=== PATIENT | female | born 1950 | race Caucasian/White ===

== ENCOUNTER 2019-05-24 16:29 | Inpatient (IN) | payer MEDICAID, OTHER ==
[~2019-05-24] VITALS: Ht 160 cm; Wt 81.5 kg
[2019-05-24] MEDS ORDERED: SODIUM CHLORIDE 0.9% 1,000 ML IV ONE (16:42)
--- NOTE | 2019-05-24 16:51 | NUR ---
PATIENT BROUGHT BACK BY [facility]- PER REPORT FROM EMS THE PATIENT HAS BEEN EXPERIENCING SYNCOPAL EPISODES THE PAST THREE DAYS. UPON EVALUATION AT [facility] 12 LEAD EKG SHOWED NO ABNORMALITIES BUT PATIENT DID HAVE INTERMITTENT EPISODES OF BRADYCARDIA INTO THE 30'S. THE PATIENT ARRIVES ALERT, ORIENTED, WARM, PINK, AND DRY. THE PATIENT HAS A LARGE HEMATOMA OVER RIGHT EYE FROM MOST RECENT SYNCOPAL EVENT RESULTING IN A GLF.
[2019-05-24 17:28] LABS: TROPONIN I < 0.015 ng/mL (0.000-0.045)
[2019-05-24] MEDS ORDERED: ASPI-496 PO (17:32)
[2019-05-24] MEDS ORDERED: ATEN25TA PO (17:33)
[2019-05-24] MEDS ORDERED: LISI5TAB7 PO (17:33)
--- NOTE | 2019-05-24 17:42 | NUR ---
ATTEMPTED TO ASSIST PATIENT TO AMBULATE TO BATHROOM, HOWEVER DECIDED TO ASSIST TO BEDSIDE COMMODE DUE TO UNSTEADY GAIT. THE PATIENTS VITAL SIGNS REMAINED STABLE. THE PATIENT WAS ABLE TO ANSWER QUESTIONS AND ORIENTED HOWEVER MADE CONFUSING STATEMENTS- "UNSURE HOW TO USE CALL LIGHT"- WHILE HOLDING IV TUBEING- REORIENTATION PROVIDED. INTERMITTENTLY STOPPED TALKING IN THE MIDDLE OF SENTANCES WHILE MAINTAINING A BLANK GAZE. FSBS 334. Addendum: 05/24/19 at 1751 by [email or web address] ATTEMPTED TO ASSIST PATIENT TO AMBULATE TO BATHROOM, HOWEVER DECIDED TO ASSIST TO BEDSIDE COMMODE DUE TO UNSTEADY GAIT. THE PATIENTS VITAL SIGNS REMAINED STABLE, NEURO REMAINED INTACT, PERRLA, MOVES ALL EXTREMITIES. THE PATIENT WAS ABLE TO ANSWER QUESTIONS AND ORIENTED HOWEVER MADE CONFUSING STATEMENTS- "UNSURE HOW TO USE CALL LIGHT"- WHILE HOLDING IV TUBING- REORIENTATION PROVIDED. INTERMITTENTLY STOPPED TALKING IN THE MIDDLE OF SENTANCES WHILE MAINTAINING A BLANK GAZE. FSBS 334.
--- NOTE | 2019-05-24 17:54 | NUR ---
PRECEPTING RN: DISCUSSED PATIENTS MENTAL STATUS WITH DORY PATTERSON. DORY PATTERSON REVIEWED LABS/IMAGING DONE AT [facility]. NO NEW ORDERS RECEIVED AT THIS TIME.
--- NOTE | 2019-05-24 18:14 | NUR ---
REPORT CALLED TO [facility]- PT TRANSFERRED TO [phone], BELONGINGS SENT WITH PT.
--- NOTE | 2019-05-24 18:35 | NUR ---
ADMITTING DAVID MOSS AT BEDSIDE FOR EVAL.
[2019-05-24] MEDS ORDERED: ACETAMINOPHEN 650 MG/20.3 ML UDC PO PRN (19:30)
[2019-05-24] MEDS ORDERED: DOCUSATE 100 MG CAPSULE PO PRN (19:30)
[2019-05-24 20:00] VITALS: BP 177/90
[2019-05-24 20:43] LABS: HEMOGLOBIN A1C 12.8 % (4.2-6.3)
[2019-05-24 20:54] VITALS: BP 158/83
[2019-05-24] MEDS: ATORVASTATIN 40 MG TABLET PO SCH (21:06)
[2019-05-24] MEDS: ENOXAPARIN 40 MG/0.4 ML SQ SCH (21:06)
[2019-05-24 22:00] VITALS: BP 138/83
[2019-05-24] MEDS ORDERED: OMNIPAQUE 350 MG/ML, 100ML BOTTLE ONE (22:54)
[2019-05-24 23:14] VITALS: BP 138/87
[2019-05-24 23:23] LABS: TROPONIN I < 0.015 ng/mL (0.000-0.045)
[2019-05-25] VITALS (8 sets, daily range): BP systolic 129–160; BP diastolic 68–96
[2019-05-25 01:25] LABS: BASOPHILS # (AUTO) 0.06 x10^3/uL (0-0.1); BASOPHILS % (AUTO) 0 % (0-1); EOSINOPHILS # (AUTO) 0.11 x10^3/uL (0-0.4); EOSINOPHILS % (AUTO) 1 % (1-7); LYMPHOCYTES # (AUTO) 2.56 x10^3/uL (1-3.4); LYMPHOCYTES % (AUTO) 18 % (22-44); MD NO; MEAN CORPUSCULAR HEMOGLOBIN 30.1 pg (27.0-34.8); MEAN CORPUSCULAR VOLUME 91.2 fL (80-100); MEAN PLATELET VOLUME 10.9 fL (7.4-10.4); MONOCYTES # (AUTO) 0.65 x10^3/uL (0.2-0.8); MONOCYTES % (AUTO) 5 % (2-9); NEUTROPHILS # (AUTO) 11.09 x10^3/uL (1.8-6.8); NEUTROPHILS % (AUTO) 77 % (42-75); PLATELET COUNT 278 x10^3/uL (130-400); RED BLOOD COUNT 4.75 x10^6/uL (3.82-5.3); RED CELL DISTRIBUTION WIDTH 13.1 % (9.6-15.2)
[2019-05-25 01:37] LABS: ANION GAP 15 mmol/L (5-15); CALCIUM 8.5 mg/dL (8.5-10.1); CHLORIDE 103 mmol/L (98-107)
[2019-05-25 01:41] LABS: TROPONIN I < 0.015 ng/mL (0.000-0.045)
[2019-05-25 01:51] LABS: CHOLESTEROL, TOTAL 246 mg/dL (140-239); TRIGLYCERIDES 408 mg/dL (50-200)
[2019-05-25 01:53] LABS: CHOL/HDL RATIO 8.8; HDL CHOL % 11 % (28-40); HDL CHOLESTEROL (DIRECT) 28 mg/dL (40-60)
[2019-05-25] MEDS: INSULIN LISPRO 100 UNITS/ML, PEN SQ-INSULIN SCH ×6 (02:05→21:52)
[2019-05-25 05:48] LABS: TROPONIN I < 0.015 ng/mL (0.000-0.045)
[2019-05-25] MEDS: LISINOPRIL 5 MG TABLET PO SCH (09:12)
[2019-05-25] MEDS: ASPIRIN 81 MG TABLET EC PO SCH (09:12)
[2019-05-25] MEDS: ASPIRIN 81 MG TABLET CHEW PO/NG SCH (09:13)
[2019-05-25] MEDS ORDERED: DEXTROSE 50%, 50ML SYRINGE IVPush PRN (10:30)
[2019-05-25] MEDS ORDERED: DEXTROSE 4 GM TAB.CHEW PO PRN (10:30)
[2019-05-25] MEDS ORDERED: GLUCAGON 1 MG IM PRN (10:30)
[2019-05-25] MEDS: CLOPIDOGREL 75 MG TABLET PO SCH (12:34)
[2019-05-25] MEDS ORDERED: INSULIN GLARGINE 100 UNITS/ML, PEN SQ-INSULIN SCH (21:00)
[2019-05-25] MEDS: ENOXAPARIN 40 MG/0.4 ML SQ SCH (21:09)
[2019-05-25] MEDS: SODIUM CHLORIDE FLUSH 10ML SYR IVF SCH (21:10)
[2019-05-25] MEDS: ATORVASTATIN 40 MG TABLET PO SCH (21:10)
[2019-05-26 00:37] VITALS: BP 148/88
[2019-05-26 02:33] VITALS: BP 158/83
[2019-05-26 04:45] VITALS: BP 158/94
[2019-05-26] MEDS: ONDANSETRON 4 MG TABLET PO PRN (05:31)
[2019-05-26 06:42] LABS: BASOPHILS # (AUTO) 0.04 x10^3/uL (0-0.1); BASOPHILS % (AUTO) 0 % (0-1); EOSINOPHILS # (AUTO) 0.15 x10^3/uL (0-0.4); EOSINOPHILS % (AUTO) 1 % (1-7); LYMPHOCYTES % (AUTO) 20 % (22-44); MD NO; MEAN CORPUSCULAR HEMOGLOBIN 29.9 pg (27.0-34.8); MEAN CORPUSCULAR HGB CONC 32.6 g/dL (32.4-35.8); MEAN CORPUSCULAR VOLUME 91.9 fL (80-100); MEAN PLATELET VOLUME 10.2 fL (7.4-10.4); MONOCYTES % (AUTO) 7 % (2-9); NEUTROPHILS # (AUTO) 10.03 x10^3/uL (1.8-6.8); NEUTROPHILS % (AUTO) 73 % (42-75); PLATELET COUNT 303 x10^3/uL (130-400); RED BLOOD COUNT 4.89 x10^6/uL (3.82-5.3); RED CELL DISTRIBUTION WIDTH 13.2 % (9.6-15.2)
[2019-05-26 06:56] LABS: ALBUMIN 3.3 g/dL (3.4-5.0); ANION GAP 16 mmol/L (5-15); CALCIUM 9.1 mg/dL (8.5-10.1); CHLORIDE 105 mmol/L (98-107)
[2019-05-26 06:59] LABS: ALANINE AMINOTRANSFERASE 22 U/L (12-78); ALKALINE PHOSPHATASE 84 U/L (45-117); BILIRUBIN,TOTAL 0.6 mg/dL (0.2-1.0); CREATININE 0.84 mg/dL (0.55-1.02); TOTAL PROTEIN 6.9 g/dL (6.4-8.2)
[2019-05-26 07:30] VITALS: BP 122/74
[2019-05-26] MEDS: LISINOPRIL 5 MG TABLET PO SCH (08:47)
[2019-05-26] MEDS: ASPIRIN 81 MG TABLET EC PO SCH (08:57)
[2019-05-26] MEDS: CLOPIDOGREL 75 MG TABLET PO SCH (08:57)
[2019-05-26] MEDS: INSULIN LISPRO 100 UNITS/ML, PEN SQ-INSULIN SCH ×4 (08:58→20:51)
[2019-05-26] MEDS: SODIUM CHLORIDE FLUSH 10ML SYR IVF SCH ×2 (08:58→20:51)
[2019-05-26] MEDS: ASPIRIN 81 MG TABLET CHEW PO/NG SCH (09:00)
[2019-05-26 13:34] VITALS: BP 120/76
[2019-05-26] MEDS: ENOXAPARIN 40 MG/0.4 ML SQ SCH (20:50)
[2019-05-26] MEDS: ATORVASTATIN 40 MG TABLET PO SCH (20:50)
[2019-05-26] MEDS: TEMAZEPAM 15 MG CAPSULE PO PRN (20:50)
[2019-05-26] MEDS: INSULIN GLARGINE 100 UNITS/ML, PEN SQ-INSULIN SCH (20:51)
[2019-05-26 21:23] VITALS: BP 139/92
[2019-05-27] VITALS (9 sets, daily range): BP systolic 102–128; BP diastolic 46–87
[2019-05-27 04:52] LABS: BASOPHILS # (AUTO) 0.02 x10^3/uL (0-0.1); BASOPHILS % (AUTO) 0 % (0-1); EOSINOPHILS # (AUTO) 0.08 x10^3/uL (0-0.4); EOSINOPHILS % (AUTO) 1 % (1-7); LYMPHOCYTES # (AUTO) 2.91 x10^3/uL (1-3.4); LYMPHOCYTES % (AUTO) 23 % (22-44); MD NO; MEAN CORPUSCULAR HEMOGLOBIN 30.2 pg (27.0-34.8); MEAN CORPUSCULAR HGB CONC 33.1 g/dL (32.4-35.8); MEAN CORPUSCULAR VOLUME 91.2 fL (80-100); MEAN PLATELET VOLUME 9.9 fL (7.4-10.4); MONOCYTES # (AUTO) 1.15 x10^3/uL (0.2-0.8); MONOCYTES % (AUTO) 9 % (2-9); NEUTROPHILS # (AUTO) 8.26 x10^3/uL (1.8-6.8); NEUTROPHILS % (AUTO) 67 % (42-75); PLATELET COUNT 283 x10^3/uL (130-400); RED BLOOD COUNT 4.87 x10^6/uL (3.82-5.3); RED CELL DISTRIBUTION WIDTH 13.4 % (9.6-15.2)
[2019-05-27 05:07] LABS: ANION GAP 10 mmol/L (5-15); CALCIUM 9.2 mg/dL (8.5-10.1); CHLORIDE 106 mmol/L (98-107)
[2019-05-27 05:10] LABS: CREATININE 0.76 mg/dL (0.55-1.02)
[2019-05-27] MEDS: ASPIRIN 325 MG TABLET PO SCH (05:25)
[2019-05-27] MEDS: INSULIN LISPRO 100 UNITS/ML, PEN SQ-INSULIN SCH ×4 (08:51→21:36)
[2019-05-27] MEDS: INSULIN GLARGINE 100 UNITS/ML, PEN SQ-INSULIN SCH (08:52)
[2019-05-27] MEDS: LISINOPRIL 5 MG TABLET PO SCH (08:52)
[2019-05-27] MEDS: SODIUM CHLORIDE FLUSH 10ML SYR IVF SCH ×2 (08:53→21:35)
[2019-05-27] MEDS ORDERED: hydrALAzine 20 MG/ML, 1ML IV PRN (09:30)
[2019-05-27] MEDS: ATENOLOL 25 MG TABLET PO SCH (09:30)
[2019-05-27] MEDS ORDERED: ATENOLOL 50 MG TABLET ONE (10:58)
[2019-05-27] MEDS: metFORMIN 500 MG TABLET PO SCH (16:54)
[2019-05-27] MEDS: ATORVASTATIN 40 MG TABLET PO SCH (21:35)
[2019-05-27] MEDS: ENOXAPARIN 40 MG/0.4 ML SQ SCH (21:35)
[2019-05-27] MEDS: TEMAZEPAM 15 MG CAPSULE PO PRN (21:35)
[2019-05-28] VITALS (12 sets, daily range): BP systolic 87–133; BP diastolic 52–86
[2019-05-28 04:54] LABS: BASOPHILS # (AUTO) 0.04 x10^3/uL (0-0.1); BASOPHILS % (AUTO) 0 % (0-1); EOSINOPHILS # (AUTO) 0.09 x10^3/uL (0-0.4); EOSINOPHILS % (AUTO) 1 % (1-7); LYMPHOCYTES # (AUTO) 2.59 x10^3/uL (1-3.4); LYMPHOCYTES % (AUTO) 22 % (22-44); MD NO; MEAN CORPUSCULAR HEMOGLOBIN 30.1 pg (27.0-34.8); MEAN CORPUSCULAR HGB CONC 33.1 g/dL (32.4-35.8); MEAN CORPUSCULAR VOLUME 91.1 fL (80-100); MEAN PLATELET VOLUME 10.2 fL (7.4-10.4); MONOCYTES % (AUTO) 11 % (2-9); NEUTROPHILS # (AUTO) 8.03 x10^3/uL (1.8-6.8); NEUTROPHILS % (AUTO) 67 % (42-75); PLATELET COUNT 262 x10^3/uL (130-400); RED BLOOD COUNT 4.52 x10^6/uL (3.82-5.3); RED CELL DISTRIBUTION WIDTH 12.6 % (9.6-15.2)
[2019-05-28 04:58] LABS: ANION GAP 9 mmol/L (5-15); CALCIUM 8.7 mg/dL (8.5-10.1); CHLORIDE 101 mmol/L (98-107)
[2019-05-28 04:59] LABS: CREATININE 0.73 mg/dL (0.55-1.02)
[2019-05-28] MEDS: LISINOPRIL 5 MG TABLET PO SCH (08:28)
[2019-05-28] MEDS: metFORMIN 500 MG TABLET PO SCH ×2 (08:28→17:00)
[2019-05-28] MEDS: INSULIN LISPRO 100 UNITS/ML, PEN SQ-INSULIN SCH ×4 (08:28→21:35)
[2019-05-28] MEDS: ASPIRIN 325 MG TABLET PO SCH (08:28)
[2019-05-28] MEDS: ATENOLOL 25 MG TABLET PO SCH (08:28)
[2019-05-28] MEDS: SODIUM CHLORIDE FLUSH 10ML SYR IVF SCH ×2 (08:34→21:33)
[2019-05-28] MEDS ORDERED: POTASSIUM CHLORIDE 20 MEQ TAB.ER.PRT PO ONE (10:30)
[2019-05-28 13:05] LABS: MICROSCOPIC INDICATED
[2019-05-28 13:06] LABS: CULTURE INDICATED? YES
[2019-05-28] MEDS: ENOXAPARIN 40 MG/0.4 ML SQ SCH (21:33)
[2019-05-28] MEDS: ATORVASTATIN 40 MG TABLET PO SCH (21:55)
[2019-05-29] VITALS (14 sets, daily range): BP systolic 98–193; BP diastolic 55–113
[2019-05-29] MEDS: ASPIRIN 325 MG TABLET PO SCH (06:04)
[2019-05-29] MEDS: INSULIN LISPRO 100 UNITS/ML, PEN SQ-INSULIN SCH ×4 (08:15→19:54)
[2019-05-29] MEDS: metFORMIN 500 MG TABLET PO SCH (08:16)
[2019-05-29] MEDS: LISINOPRIL 5 MG TABLET PO SCH ×2 (08:16→09:00)
[2019-05-29] MEDS ORDERED: MAGNESIUM HYDROXIDE 8%, 30ML UDC PO PRN (08:30)
[2019-05-29] MEDS: SODIUM CHLORIDE FLUSH 10ML SYR IVF SCH ×2 (09:00→22:28)
[2019-05-29] MEDS: ATENOLOL 25 MG TABLET PO SCH ×2 (09:44→11:36)
[2019-05-29] MEDS: CEFTRIAXONE PMX 1GM/50ML 50 ML IV SCH (09:45)
[2019-05-29] MEDS: metFORMIN 850 MG TABLET PO SCH (17:28)
[2019-05-29] MEDS: ONDANSETRON 4 MG TABLET PO PRN (19:30)
[2019-05-29] MEDS: ENOXAPARIN 40 MG/0.4 ML SQ SCH (22:28)
[2019-05-29] MEDS: ATORVASTATIN 40 MG TABLET PO SCH (22:28)
[2019-05-30] VITALS (7 sets, daily range): BP systolic 98–123; BP diastolic 42–88
[2019-05-30 05:10] LABS: BASOPHILS # (AUTO) 0.02 x10^3/uL (0-0.1); BASOPHILS % (AUTO) 0 % (0-1); EOSINOPHILS # (AUTO) 0.12 x10^3/uL (0-0.4); EOSINOPHILS % (AUTO) 1 % (1-7); LYMPHOCYTES # (AUTO) 1.89 x10^3/uL (1-3.4); LYMPHOCYTES % (AUTO) 19 % (22-44); MD NO; MEAN CORPUSCULAR HEMOGLOBIN 30.4 pg (27.0-34.8); MEAN CORPUSCULAR HGB CONC 33.5 g/dL (32.4-35.8); MEAN CORPUSCULAR VOLUME 90.9 fL (80-100); MEAN PLATELET VOLUME 9.7 fL (7.4-10.4); MONOCYTES # (AUTO) 0.89 x10^3/uL (0.2-0.8); MONOCYTES % (AUTO) 9 % (2-9); NEUTROPHILS # (AUTO) 6.99 x10^3/uL (1.8-6.8); NEUTROPHILS % (AUTO) 71 % (42-75); PLATELET COUNT 200 x10^3/uL (130-400); RED BLOOD COUNT 4.44 x10^6/uL (3.82-5.3); RED CELL DISTRIBUTION WIDTH 12.7 % (9.6-15.2)
[2019-05-30 05:18] LABS: ANION GAP 6 mmol/L (5-15); CALCIUM 8.6 mg/dL (8.5-10.1); CHLORIDE 102 mmol/L (98-107)
[2019-05-30 05:19] LABS: CREATININE 0.52 mg/dL (0.55-1.02)
[2019-05-30] MEDS: ASPIRIN 325 MG TABLET PO SCH (06:06)
[2019-05-30] MEDS: metFORMIN 850 MG TABLET PO SCH ×2 (08:56→17:06)
[2019-05-30] MEDS: LISINOPRIL 5 MG TABLET PO SCH (08:57)
[2019-05-30] MEDS: ATENOLOL 25 MG TABLET PO SCH (08:57)
[2019-05-30] MEDS: CEFTRIAXONE PMX 1GM/50ML 50 ML IV SCH (08:57)
[2019-05-30] MEDS: INSULIN LISPRO 100 UNITS/ML, PEN SQ-INSULIN SCH ×4 (08:58→20:21)
[2019-05-30] MEDS: SODIUM CHLORIDE FLUSH 10ML SYR IVF SCH ×2 (08:58→20:21)
[2019-05-30] MEDS: ATORVASTATIN 40 MG TABLET PO SCH (20:21)
[2019-05-30] MEDS: ENOXAPARIN 40 MG/0.4 ML SQ SCH (20:21)
[2019-05-30] MEDS: ONDANSETRON 4 MG TABLET PO PRN (23:44)
[2019-05-31] VITALS (13 sets, daily range): BP systolic 127–152; BP diastolic 62–89
[2019-05-31] MEDS ORDERED: LORazepam 0.5MG TABLET PO ONE (01:00)
[2019-05-31] MEDS: ASPIRIN 325 MG TABLET PO SCH (05:36)
[2019-05-31] MEDS: INSULIN LISPRO 100 UNITS/ML, PEN SQ-INSULIN SCH ×3 (07:13→16:26)
[2019-05-31] MEDS: LISINOPRIL 5 MG TABLET PO SCH (07:47)
[2019-05-31] MEDS: metFORMIN 850 MG TABLET PO SCH ×2 (07:47→16:25)
[2019-05-31] MEDS: SODIUM CHLORIDE FLUSH 10ML SYR IVF SCH (07:48)
[2019-05-31] MEDS: ATENOLOL 25 MG TABLET PO SCH (07:48)
[2019-05-31] MEDS: CEFTRIAXONE PMX 1GM/50ML 50 ML IV SCH (09:28)
[2019-05-31] MEDS ORDERED: ATEN25TA PO (16:15)
[2019-05-31] MEDS ORDERED: METF850T PO (16:15)
[2019-05-31] MEDS ORDERED: GLIP5TAB10 PO (16:15)
[2019-05-31] MEDS ORDERED: LISI5TAB7 PO (16:15)
[2019-05-31] MEDS ORDERED: ATOR40TA78 PO (16:15)
[2019-05-31] MEDS ORDERED: ASPI325T17 PO (16:15)
== END 2019-05-31 18:35 | disposition home or self-care (01) | DRG 64 ==
LOC: ED 17:33 → 5SO 17:38 → ED 18:01 → 4WST 05-26 17:30
PROVIDERS: ADMIT Internal Medicine; ATTEND Internal Medicine
PROC: B3151ZZ Fluoroscopy of Bilateral Common Carotid Arteries using Low Osmolar Contrast (ICD-10-PCS; principal; 2019-05-24)
PROC: B31G1ZZ Fluoroscopy of Bilateral Vertebral Arteries using Low Osmolar Contrast (ICD-10-PCS; 2019-05-24)
PROC: B3181ZZ Fluoroscopy of Bilateral Internal Carotid Arteries using Low Osmolar Contrast (ICD-10-PCS; 2019-05-24)
DX: I63.9 Cerebral infarction, unspecified (principal); G93.41 Metabolic encephalopathy; I67.83 Posterior reversible encephalopathy syndrome; E87.1 Hypo-osmolality and hyponatremia; F20.0 Paranoid schizophrenia; I50.32 Chronic diastolic (congestive) heart failure; D72.829 Elevated white blood cell count, unspecified; E78.5 Hyperlipidemia, unspecified; E87.6 Hypokalemia; H53.462 Homonymous bilateral field defects, left side; H54.7 Unspecified visual loss; I11.0 Hypertensive heart disease with heart failure; I16.0 Hypertensive urgency; G90.9 Disorder of the autonomic nervous system, unspecified; E11.65 Type 2 diabetes mellitus with hyperglycemia; R00.1 Bradycardia, unspecified; S05.11XA Contusion of eyeball and orbital tissues, right eye, initial encounter; W18.30XA Fall on same level, unspecified, initial encounter; Y93.89 Activity, other specified; Y92.89 Other specified places as the place of occurrence of the external cause; Y99.8 Other external cause status; Z87.891 Personal history of nicotine dependence; Z86.73 Personal history of transient ischemic attack (TIA), and cerebral infarction without residual deficits; Z83.3 Family history of diabetes mellitus; Z79.82 Long term (current) use of aspirin
CPT/HCPCS: 0399T; 36415; 70450; 70496; 70498; 70551; 80048; 80053; 80061; 81001; 82140; 82962; 83036; 83880; 84145; 84484; 85025; 87086; 93005; 93306; 96360; 96361; G0378; J0696; J1650; Q0162; Q9967; 92523-GN; J1815; J7030